=== PATIENT | female | born 1950 | race Caucasian/White ===

== ENCOUNTER 2019-05-19 20:49 | Inpatient (IN) | payer OTHER ==
[~2019-05-19] VITALS: Ht 154.9 cm; Wt 45.9 kg
--- NOTE | 2019-05-19 21:09 | NUR ---
TAKEN TO XRAY FROM TRIAGE, THEN WILL COME TO 14.
[2019-05-19 21:28] LABS: RAPID INFLUENZA A Negative (Negative); RAPID INFLUENZA B Negative (Negative)
[2019-05-19] MEDS ORDERED: SODIUM CHLORIDE 0.9% 1,000ML IVBOLUS ONE ×3 (21:30→23:00)
[2019-05-19] MEDS ORDERED: ACETAMINOPHEN 500 MG TABLET PO ONE (21:30)
[2019-05-19] MEDS ORDERED: SODIUM CHLORIDE FLUSH 10ML SYR IVF ONE (21:30)
[2019-05-19] MEDS ORDERED: methylPREDNISolone SOD SUCC 125 MG/2 ML ONE (21:43)
[2019-05-19 21:48] LABS: BASOPHILS # (AUTO) 0.01 x10^3/uL (0-0.1); BASOPHILS % (AUTO) 0 % (0-1); EOSINOPHILS % (AUTO) 0 % (1-7); LYMPHOCYTES # (AUTO) 0.81 x10^3/uL (1-3.4); LYMPHOCYTES % (AUTO) 8 % (22-44); MD NO; MEAN CORPUSCULAR HEMOGLOBIN 30.3 pg (27.0-34.8); MEAN CORPUSCULAR HGB CONC 33.2 g/dL (32.4-35.8); MEAN CORPUSCULAR VOLUME 91.1 fL (80-100); MEAN PLATELET VOLUME 9.4 fL (7.4-10.4); MONOCYTES # (AUTO) 0.48 x10^3/uL (0.2-0.8); MONOCYTES % (AUTO) 5 % (2-9); NEUTROPHILS # (AUTO) 9.08 x10^3/uL (1.8-6.8); NEUTROPHILS % (AUTO) 88 % (42-75); PLATELET COUNT 165 x10^3/uL (130-400); RED BLOOD COUNT 4.76 x10^6/uL (3.82-5.3); RED CELL DISTRIBUTION WIDTH 13.3 % (9.6-15.2)
[2019-05-19 21:50] LABS: ALANINE AMINOTRANSFERASE 15 U/L (12-78); ALBUMIN 3.6 g/dL (3.4-5.0); ANION GAP 7 mmol/L (5-15); CHLORIDE 105 mmol/L (98-107); CREATININE 0.86 mg/dL (0.55-1.02)
[2019-05-19] MEDS ORDERED: ALBUTEROL SULFATE 2.5 MG/3 ML ONE (21:51)
[2019-05-19 21:52] LABS: ALKALINE PHOSPHATASE 118 U/L (45-117); BILIRUBIN,TOTAL 0.4 mg/dL (0.2-1.0); TOTAL PROTEIN 7.6 g/dL (6.4-8.2)
--- NOTE | 2019-05-19 21:58 | NUR ---
rt at bedside. pt medicated, ivf infusing per emar.
[2019-05-19] MEDS ORDERED: OMNIPAQUE 350 MG/ML, 100ML BOTTLE ONE (22:00)
[2019-05-19] MEDS ORDERED: ALBUTEROL SULFATE 2.5 MG/3 ML NPPB ONE (22:00)
[2019-05-19] MEDS ORDERED: methylPREDNISolone SOD SUCC 125 MG/2 ML IVPush ONE (22:00)
[2019-05-19 22:01] LABS: TROPONIN I < 0.015 ng/mL (0.000-0.045)
[2019-05-19] MEDS ORDERED: CEFTRIAXONE PMX 1GM/50ML 50 ML IV ONE (22:30)
[2019-05-19] MEDS ORDERED: AZITHROMYCIN 500 MG in SODIUM CHLORIDE 0.9% 250 ML IV ONE (22:30)
--- NOTE | 2019-05-19 22:35 | NUR ---
ASSISTED PT TO RR, STEADY GAIT NOTED, PROVIDED PT WITH URINE CUP
--- NOTE | 2019-05-19 22:40 | NUR ---
PT UP TO BATHROOM INDEPENDENTLY. PT REMAINS ANXIOUS. UA COLLECTED AND SENT.
[2019-05-19] MEDS ORDERED: CEFTRIAXONE PMX 1GM/50ML 50 ML ONE (22:43)
[2019-05-19 22:52] LABS: MICROSCOPIC NOT IND
--- NOTE | 2019-05-19 22:52 | NUR ---
PT REQUESTS PO FLUIDS. NOTE FOR MD REGARDING REQUEST. DISCUSSION REGARDING POTENTIAL STAY IN HOSPITAL. AT BEDSIDE.
[2019-05-19 22:58] LABS: CULTURE INDICATED? NO
[2019-05-19] MEDS ORDERED: METH40TA3 PO (23:04)
[2019-05-19] MEDS ORDERED: CLON1TAB23 PO (23:04)
[2019-05-19] MEDS ORDERED: LANS30CA60 PO (23:04)
[2019-05-19] MEDS ORDERED: LISI-167 PO (23:04)
--- NOTE | 2019-05-19 23:08 | NUR ---
Report given to HEENA Maki
[2019-05-19] MEDS ORDERED: ALBUTEROL/IPRATROPIUM 2.5MG/0.5MG, 3 ML NPPB PRN (23:30)
[2019-05-19] MEDS ORDERED: ONDANSETRON 2MG/ML, 2ML IVPush PRN (23:30)
[2019-05-19] MEDS ORDERED: ACETAMINOPHEN 325 MG TABLET PO PRN (23:30)
[2019-05-19 23:45] VITALS: BP 147/72
[2019-05-20] MEDS ORDERED: NICOTINE 21 MG/24 HR PATCH.TD24 TD ONE (00:30)
[2019-05-20 01:42] VITALS: BP 113/67
[2019-05-20] MEDS ORDERED: AZITHROMYCIN 500 MG in SODIUM CHLORIDE 0.9% 250 ML IV SCH (02:00)
[2019-05-20] MEDS: AZITHROMYCIN 500 MG in SODIUM CHLORIDE 0.9% 250 ML IV SCH (02:07)
[2019-05-20] MEDS: SODIUM CHLORIDE 0.9% 1,000 ML IV SCH ×3 (03:51→21:07)
[2019-05-20 05:48] LABS: CHLORIDE 114 mmol/L (98-107)
[2019-05-20 05:57] LABS: ANION GAP 4 mmol/L (5-15); CALCIUM 8.1 mg/dL (8.5-10.1); CREATININE 0.64 mg/dL (0.55-1.02)
[2019-05-20 06:28] LABS: BASOPHILS % (AUTO) 0 % (0-1); EOSINOPHILS % (AUTO) 0 % (1-7); LYMPHOCYTES % (AUTO) 7 % (22-44); MD NO; MEAN CORPUSCULAR HEMOGLOBIN 30.3 pg (27.0-34.8); MEAN CORPUSCULAR HGB CONC 33.1 g/dL (32.4-35.8); MEAN CORPUSCULAR VOLUME 91.5 fL (80-100); MEAN PLATELET VOLUME 9.4 fL (7.4-10.4); MONOCYTES # (AUTO) 0.05 x10^3/uL (0.2-0.8); MONOCYTES % (AUTO) 1 % (2-9); NEUTROPHILS # (AUTO) 7.49 x10^3/uL (1.8-6.8); NEUTROPHILS % (AUTO) 92 % (42-75); PLATELET COUNT 148 x10^3/uL (130-400); RED BLOOD COUNT 4.13 x10^6/uL (3.82-5.3); RED CELL DISTRIBUTION WIDTH 13.9 % (9.6-15.2)
[2019-05-20 07:48] VITALS: BP 146/72
[2019-05-20] MEDS: CEFTRIAXONE PMX 1GM/50ML 50 ML IV SCH (09:02)
[2019-05-20] MEDS: METHADONE INTENSOL 10 MG/ML ORAL CONC PO SCH ×2 (09:02→21:03)
[2019-05-20] MEDS: LISINOPRIL 20 MG TABLET PO SCH (09:02)
[2019-05-20 12:54] VITALS: BP 136/75
[2019-05-20 19:40] VITALS: BP 135/75
[2019-05-21] MEDS ORDERED: NICOTINE 21 MG/24 HR PATCH.TD24 TD SCH
[2019-05-21 00:13] VITALS: BP 146/77
[2019-05-21] MEDS: AZITHROMYCIN 500 MG in SODIUM CHLORIDE 0.9% 250 ML IV SCH (02:53)
[2019-05-21] MEDS: SODIUM CHLORIDE 0.9% 1,000 ML IV SCH (04:59)
[2019-05-21 07:52] VITALS: BP 154/83
[2019-05-21] MEDS: CEFTRIAXONE PMX 1GM/50ML 50 ML IV SCH (08:41)
[2019-05-21] MEDS: LISINOPRIL 20 MG TABLET PO SCH (08:42)
[2019-05-21] MEDS: METHADONE INTENSOL 10 MG/ML ORAL CONC PO SCH (08:44)
[2019-05-21] MEDS ORDERED: CEFD300C37 PO (09:19)
[2019-05-21] MEDS ORDERED: NICO-487 TD (09:19)
[2019-05-21] MEDS ORDERED: AZIT250T PO (09:19)
== END 2019-05-21 11:03 | disposition home or self-care (01) | DRG 871 ==
LOC: ED 21:44 → EDIP 22:58 → 4EST 23:38 → DCLOUNGE 05-21 10:53
PROVIDERS: ADMIT Internal Medicine; ATTEND Family Medicine
DX: A41.9 Sepsis, unspecified organism (principal); J15.9 Unspecified bacterial pneumonia; J96.01 Acute respiratory failure with hypoxia; R65.21 Severe sepsis with septic shock; F11.20 Opioid dependence, uncomplicated; N13.30 Unspecified hydronephrosis; F17.210 Nicotine dependence, cigarettes, uncomplicated; J02.9 Acute pharyngitis, unspecified; F43.10 Post-traumatic stress disorder, unspecified; I10 Essential (primary) hypertension; Z88.2 Allergy status to sulfonamides
CPT/HCPCS: 36415; 84145; 87400; 96374; 99291; J7613; 71045; 71275; 76770; 80048; 80053; 81003; 83605; 83880; 84484; 85025; 87040; 87081; 87880; 93005; 94640; G0378; J0456; J0696; Q9967; J2930; J7030; J7050

== ENCOUNTER 2020-05-22 11:46 | Emergency (ER) | payer OTHER, MEDICARE ==
[~2020-05-22] VITALS: Ht 152.4 cm; Wt 58.5 kg
[~2020-05-22 11:46] MED LIST: AZIT250T PO; CEFD300C37 PO; CLON1TAB23 PO; LANS30CA60 PO; LISI-167 PO; METH40TA3 PO; NICO-587 TD
--- NOTE | 2020-05-22 13:11 | NUR ---
Pt states she was sleep-walking Thursday morning and fell, hitting her back on the tile on their fireplace. Pt resting in position of comfort. MD Adame at bedside. Pt states "I begged my PCP for torodol because I didn't want to be seen as drug seeking, but what really helps is a demerol shot, I get migraines and that seems to break the cycle."
[2020-05-22] MEDS ORDERED: METHOCARBAMOL 750 MG TABLET ONE (13:24)
[2020-05-22] MEDS ORDERED: KETOROLAC 60 MG/2 ML ONE (13:24)
[2020-05-22] MEDS ORDERED: KETOROLAC 30 MG/1 ML IM ONE ×2 (13:30)
[2020-05-22] MEDS ORDERED: METHOCARBAMOL 750 MG TABLET PO ONE (13:30)
--- NOTE | 2020-05-22 14:07 | NUR ---
Pt to and from imaging.
--- NOTE | 2020-05-22 14:46 | NUR ---
MD Adame at bedside to update pt on POC including d/c.
[2020-05-22 15:14] VITALS: BP 117/70
--- NOTE | 2020-05-22 15:17 | NUR ---
PT AND SPOUSE REC'VD DISCHARGE EDUCATION AND INSTRUCTIONS. PT AND SPOUSE HAD NO FURTHER QUESTIONS.
--- NOTE | 2020-05-22 15:25 | NUR ---
PT IN WHEELCHAIR TO DC AREA, THEN TO THE PT'S 'S CAR.
== END 2020-05-22 15:30 | disposition home or self-care (01) ==
LOC: ED 14:04
DX: M51.36 Other intervertebral disc degeneration, lumbar region (principal); I10 Essential (primary) hypertension; W18.30XA Fall on same level, unspecified, initial encounter; Y92.009 Unspecified place in unspecified non-institutional (private) residence as the place of occurrence of the external cause; Y93.89 Activity, other specified; Y99.8 Other external cause status
CPT/HCPCS: 72110; 72220; 96372; 99284; J1885

== ENCOUNTER 2020-08-04 01:37 | Inpatient (IN) | payer MEDICARE, OTHER ==
[~2020-08-04] VITALS: Ht 149.9 cm; Wt 58.5 kg
--- NOTE | 2020-08-04 02:20 | NUR ---
PT BIB [facility] TO ROOM 4, PT SLEEPY AND MILDLY DROWSY. PT TRIAGED, AND IS SLEEPY BUT EASILY AROUSABLE, AND A&OX4 WHEN SHE'S AWAKE. EMS MEDICATED PT FOR PAIN, BY GIVING 8MG OF MORPHINE SULFATE IV, AND 100 MCG OF FENTANYL IV. PT CONTINUES TO ASK FOR PAIN MEDS AT THIS TIME OF ASSESMENT.
--- NOTE | 2020-08-04 02:27 | NUR ---
PT TAKEN TO CT BY THE AIRPLANE MECHANIC, AND GOOD AERATION AND OXYGENATION AND AIRWAY PATENT AND INTACT WITHOUT ASSISTANCE.
[2020-08-04] MEDS ORDERED: SODIUM CHLORIDE FLUSH 10ML SYR IVF ONE (02:30)
[2020-08-04] MEDS ORDERED: SODIUM CHLORIDE 0.9% 1,000 ML IV ONE (02:30)
[2020-08-04 02:48] LABS: BASOPHILS % (AUTO) 1 % (0-1); EOSINOPHILS % (AUTO) 1 % (1-7); LYMPHOCYTES % (AUTO) 35 % (22-44); MEAN CORPUSCULAR HEMOGLOBIN 31.4 pg (27.0-34.8); MEAN CORPUSCULAR HGB CONC 34.5 g/dL (32.4-35.8); MEAN PLATELET VOLUME 7.8 fL (7.4-10.4); MONOCYTES % (AUTO) 5 % (2-9); NEUTROPHILS % (AUTO) 59 % (42-75); PLATELET COUNT 199 x10^3/uL (130-400); RED BLOOD COUNT 4.31 x10^6/uL (3.82-5.3)
[2020-08-04 03:01] LABS: ALANINE AMINOTRANSFERASE 20 U/L (12-78); ALBUMIN 3.7 g/dL (3.4-5.0); ANION GAP 7 mmol/L (5-15); CALCIUM 8.6 mg/dL (8.5-10.1); CHLORIDE 89 mmol/L (98-107); CREATININE 0.87 mg/dL (0.55-1.02)
[2020-08-04 03:03] LABS: ALKALINE PHOSPHATASE 81 U/L (45-117); BILIRUBIN,TOTAL 0.2 mg/dL (0.2-1.0); TOTAL PROTEIN 6.9 g/dL (6.4-8.2)
--- NOTE | 2020-08-04 03:03 | NUR ---
RN WENT INTO ROOM TO PROVIDE ICE CHIPS REQUESTED BY PT. PT IS ASLEEP AND EASILY AROUSABLE VERBALLY, PT WOKE UP AND ASKED IF SHE COULD HAVE MORE PAIN MEDICATIONS. MD ADVISED AND NO PAIN MEDICATIONS AT THIS TIME. PT STILL DROWSY AND SLEEPY FROM THE 8MG OF MORPHINE AND 100MCG OF FENTANYL RECEIVED ENROUTE BY EMS. PTS AT BEDSIDE, PROVIDING AN ICE CHIP AT A TIME, PT STATES HER MOUTH IS EXTREMELY DRY.
--- NOTE | 2020-08-04 03:24 | NUR ---
PT REASSESED AND SLEEPING UNTIL RN WALKS IN ROOM. PT V/S TAKEN. PT REQUESTING PAIN MEDS AGAIN AFTER SHE WOKE UP. PT ADVISED WE CAN TRY ALTERNATIVES SUCH TYLENOL AND IBUPROFEN AT THE MOMENT SINCE SHE JUST GOT A LARGE DOSE OF NARCOTICS. PT IMMEDIATELY STATED THAT TORADOL DOESN'T WORK ON HER AND THAT SHE'S BEEN TAKING TOO MANY IBUPROFEN TO TAKE MORE, AND SAID THAT TYLENOL DOESN'T WORK. PT WAS ADVISED THAT THE MD WOULD BE NOTIFIED AND WE WOULD GO WITH ANY ORDERS THE MD GAVE. PT UNDERSTOOD AND WENT BACK TO SLEEP.
[2020-08-04] MEDS ORDERED: POTASSIUM CHLORIDE 40 MEQ in SODIUM CHLORIDE 0.9% 500 ML IV ONE ×2 (03:30→05:30)
[2020-08-04] MEDS ORDERED: POTASSIUM CHLORIDE 20 MEQ TAB.ER.PRT PO ONE (03:30)
[2020-08-04] MEDS ORDERED: POTASSIUM CHLORIDE 20 MEQ TAB.ER.PRT ONE (03:33)
[2020-08-04 04:19] LABS: MICROSCOPIC NOT IND
--- NOTE | 2020-08-04 04:23 | NUR ---
PT ASSITED TO THE BEDSIDE COMMODE, AND PTS AND RN NEAR BEDSIDE TO PROVIDE HELP. PT PROVIDED URINE SAMPLE AND SENT TO LAB. EKG ORDERED AND DONE. PT ON CR MONITOR COMPLETELY. NO FURTHER COMPLAINTS FROM PT. TO BE ADMITTED. AT BEDSIDE.
[2020-08-04 04:27] LABS: CHLORIDE,URINE RANDOM 41 mmol/L; POTASSIUM,URINE RANDOM 25 mmol/L; SODIUM,URINE RANDOM 33 mmol/L
--- NOTE | 2020-08-04 04:45 | NUR ---
PT COMPLAINING OF MILD DISCOMFORT TO LEFT AC PIV. KCL FLUIDS INFUSING AT 130ML/HR ORDERED PER EMAR. PIV SITE CHECKED AND SOFT AND FLAT AND NO REDNESS. AT BEDSIDE, AND HEATER PLACED FOR PT, SHE FEELS VERY COLD. PT RESTING COMFORTABLY AND IN BETTER CONDITION. AWAITING ROOM ASSIGNMENT.
[2020-08-04] MEDS ORDERED: DOCUSATE 100 MG CAPSULE PO PRN (05:00)
[2020-08-04] MEDS ORDERED: ONDANSETRON ODT 4 MG PO PRN (05:00)
[2020-08-04] MEDS ORDERED: ONDANSETRON 2MG/ML, 2ML IVPush PRN (05:00)
[2020-08-04] MEDS ORDERED: POLYETHYLENE GLYCOL 17 GM PACKET PO PRN (05:00)
[2020-08-04] MEDS ORDERED: SODIUM CHLORIDE 0.9% 1,000 ML IV SCH (05:00)
[2020-08-04] MEDS ORDERED: ACETAMINOPHEN 325 MG TABLET PO PRN (05:00)
[2020-08-04] MEDS ORDERED: BISACODYL 10 MG SUPP PR PRN (05:00)
[2020-08-04] MEDS ORDERED: hydrALAzine 20 MG/ML, 1ML IVPush PRN (05:00)
[2020-08-04] MEDS ORDERED: PROMETHAZINE 25 MG/ML, 1ML IM PRN (05:00)
[2020-08-04] MEDS: ENOXAPARIN 40 MG/0.4 ML SQ SCH (05:00)
[2020-08-04] MEDS ORDERED: ENOXAPARIN 40 MG/0.4 ML ONE (05:17)
[2020-08-04] MEDS ORDERED: POTASSIUM CHLORIDE MC SCH (05:30)
[2020-08-04] MEDS ORDERED: linzess PO (06:18)
[2020-08-04] MEDS: OXYcodone/APAP 5/325MG TABLET PO PRN ×4 (06:25→20:43)
[2020-08-04 06:35] VITALS: BP 119/78
[2020-08-04 08:04] VITALS: BP 120/78
[2020-08-04] MEDS ORDERED: LORazepam 2 MG/ML, 1ML IVPush PRN (09:00)
[2020-08-04 11:28] LABS: ANION GAP 6 mmol/L (5-15); CALCIUM 8.4 mg/dL (8.5-10.1); CHLORIDE 95 mmol/L (98-107); CREATININE 0.79 mg/dL (0.55-1.02)
[2020-08-04 12:36] VITALS: BP 128/75
[2020-08-04] MEDS: NICOTINE 21 MG/24 HR PATCH.TD24 TD SCH (14:34)
[2020-08-04] MEDS ORDERED: HYDR12.517 PO (16:40)
[2020-08-04] MEDS ORDERED: LISI-170 PO (16:40)
[2020-08-04] MEDS ORDERED: QUET25TA5 PO (16:40)
[2020-08-04 18:04] LABS: ANION GAP 6 mmol/L (5-15); CALCIUM 8.5 mg/dL (8.5-10.1); CHLORIDE 98 mmol/L (98-107); CREATININE 0.83 mg/dL (0.55-1.02)
[2020-08-04 20:39] VITALS: BP 136/75
[2020-08-04] MEDS: QUETIAPINE 25MG TABLET PO PRN (20:40)
[2020-08-04] MEDS: ZOLPIDEM 5MG TABLET PO PRN (22:36)
[2020-08-04] MEDS ORDERED: LIDODERM 5% PATCH TD PRN (23:30)
[2020-08-04] MEDS: MORPHINE SULFATE 4 MG/ML, 1ML IVPush PRN (23:42)
[2020-08-05] MEDS: MORPHINE SULFATE 4 MG/ML, 1ML IVPush PRN ×2 (00:15→05:46)
[2020-08-05 00:36] LABS: ANION GAP 4 mmol/L (5-15); CALCIUM 8.8 mg/dL (8.5-10.1); CHLORIDE 99 mmol/L (98-107)
[2020-08-05 01:13] VITALS: BP 143/87
[2020-08-05] MEDS: ENOXAPARIN 40 MG/0.4 ML SQ SCH (05:00)
[2020-08-05 05:32] LABS: BASOPHILS % (AUTO) 1 % (0-1); EOSINOPHILS % (AUTO) 2 % (1-7); LYMPHOCYTES % (AUTO) 39 % (22-44); MEAN CORPUSCULAR HGB CONC 33.9 g/dL (32.4-35.8); MEAN PLATELET VOLUME 8.4 fL (7.4-10.4); MONOCYTES % (AUTO) 7 % (2-9); NEUTROPHILS % (AUTO) 51 % (42-75); PLATELET COUNT 205 x10^3/uL (130-400); RED BLOOD COUNT 4.26 x10^6/uL (3.82-5.3); RED CELL DISTRIBUTION WIDTH 14.3 % (9.6-15.2)
[2020-08-05 05:44] LABS: CHLORIDE 103 mmol/L (98-107)
[2020-08-05 05:53] LABS: ALANINE AMINOTRANSFERASE 18 U/L (12-78); ALBUMIN 3.5 g/dL (3.4-5.0); ALKALINE PHOSPHATASE 73 U/L (45-117); ANION GAP 6 mmol/L (5-15); BILIRUBIN,TOTAL 0.6 mg/dL (0.2-1.0); CHOL/HDL RATIO 2.4; CHOLESTEROL, TOTAL 194 mg/dL (140-239); CREATININE 0.82 mg/dL (0.55-1.02); HDL CHOL % 41 % (28-40); HDL CHOLESTEROL (DIRECT) 80 mg/dL (40-60); LDL CHOLESTEROL,CALCULATED 84 mg/dL (54-169); LDL/HDL RATIO 1.1 (0.5-3.0); TOTAL PROTEIN 6.3 g/dL (6.4-8.2); TRIGLYCERIDES 152 mg/dL (50-200); VLDL CHOLESTEROL 30 mg/dL (0-25)
[2020-08-05 07:28] VITALS: BP 131/87
[2020-08-05] MEDS ORDERED: CALCIUM CARBONATE 500 MG TAB.CHEW ONE (08:54)
[2020-08-05] MEDS ORDERED: CALCIUM CARBONATE 500 MG TAB.CHEW PO PRN (09:00)
[2020-08-05] MEDS: OXYcodone/APAP 5/325MG TABLET PO PRN ×4 (09:05→23:19)
[2020-08-05] MEDS ORDERED: GADOTERATE 7.5 MMOL/15ML SYR ONE (10:29)
[2020-08-05] MEDS ORDERED: AMPICILLIN/SULBACTAM 3 GM in SODIUM CHLORIDE 0.9% 100 ML IV SCH (11:30)
[2020-08-05] MEDS: MAALOX/HYOSCYAMINE/LIDOCAINE 45 ML BTL PO PRN ×2 (11:57→23:19)
[2020-08-05] MEDS: NICOTINE 21 MG/24 HR PATCH.TD24 TD SCH (11:58)
[2020-08-05] MEDS: BACITRACIN OINT 500U/GM, 28GM TP SCH ×3 (11:58→20:29)
[2020-08-05 13:20] VITALS: BP 148/87
[2020-08-05] MEDS: OMEPRAZOLE 20 MG CAPSULE.DR PO SCH (16:40)
[2020-08-05 19:45] VITALS: BP 143/81
[2020-08-05] MEDS: QUETIAPINE 25MG TABLET PO PRN (20:21)
[2020-08-06] MEDS: ZOLPIDEM 5MG TABLET PO PRN (00:51)
[2020-08-06 02:04] VITALS: BP 121/79
[2020-08-06] MEDS: ENOXAPARIN 40 MG/0.4 ML SQ SCH (05:00)
[2020-08-06] MEDS: OMEPRAZOLE 20 MG CAPSULE.DR PO SCH (06:27)
[2020-08-06] MEDS: OXYcodone/APAP 5/325MG TABLET PO PRN ×2 (06:43→10:15)
[2020-08-06 07:28] VITALS: BP 123/74
[2020-08-06] MEDS: BACITRACIN OINT 500U/GM, 28GM TP SCH (09:03)
[2020-08-06] MEDS ORDERED: LACTULOSE 20 GM/30 ML UDC PO ONE (10:30)
[2020-08-06] MEDS ORDERED: LORATADINE 10 MG TABLET PO PRN (10:30)
[2020-08-06] MEDS ORDERED: LACTULOSE 20 GM/30 ML UDC PO PRN (10:30)
[2020-08-06] MEDS ORDERED: OXYC1TAB12 PO (11:12)
[2020-08-06] MEDS ORDERED: LORA-247 PO (11:12)
[2020-08-06] MEDS ORDERED: LIDO700A20 TD (11:12)
[2020-08-06] MEDS ORDERED: LACT20SO13 PO (11:12)
== END 2020-08-06 13:00 | disposition home health service (06) | DRG 542 ==
LOC: ED 02:16 → EDIP 04:11 → 5SO 05:54 → DCLOUNGE 08-06 12:46
PROVIDERS: ADMIT Internal Medicine; ATTEND Internal Medicine
DX: M48.54XA Collapsed vertebra, not elsewhere classified, thoracic region, initial encounter for fracture (principal); G93.41 Metabolic encephalopathy; E87.1 Hypo-osmolality and hyponatremia; N13.30 Unspecified hydronephrosis; E87.6 Hypokalemia; F17.200 Nicotine dependence, unspecified, uncomplicated; I10 Essential (primary) hypertension; F41.9 Anxiety disorder, unspecified; G51.0 Bell's palsy; Z72.89 Other problems related to lifestyle; Z88.2 Allergy status to sulfonamides; Z71.6 Tobacco abuse counseling
CPT/HCPCS: 36415; 72128; 72131; 72157; 80048; 80053; 80061; 81003; 82436; 83036; 83735; 83930; 83935; 84100; 84133; 84300; 84443; 85025; 93005; 96361; 96374; G0378; J1650; J3480; A9575; J2060; J2270; J7030; J7040

== ENCOUNTER 2020-08-09 19:47 | Emergency (ER) | payer MEDICARE, OTHER ==
[~2020-08-09] VITALS: Ht 157.5 cm; Wt 60.0 kg
[~2020-08-09 19:47] MED LIST changes: +HYDR12.517 PO; +LACT20SO13 PO; +LIDO700A20 TD; +LISI-170 PO; +LORA-247 PO; +OXYC1TAB14 PO; +QUET25TA5 PO; +linzess PO
[2020-08-09 20:11] VITALS: BP 153/93
--- NOTE | 2020-08-09 20:28 | NUR ---
CC OF UNABLE TO GO TO THE BATHROOM, WORRIED FOR STOOL IMPACTION AND URINARY RETENTION AND BACK PAIN. STATES " THEY GAVE ME A LAXATIVE WHEN I WAS ADMITTED HERE AND I COULD PEE, THEN THEY STOPPED AND I COULDNT PEE, THEY HAD TO STRAIGHT CATH ME TWICE WHEN I WAS HERE". STATES ITS BEEN 4 DAYS SHE URINATED, ONLY HAD "TRICKLES OF URINE" AND LAST BM WAS WHEN ADMITTED, HAS TAKEN "LOST OF STOOL SOFTENERS" SINCE DC. RECENTLY HERE FOR FX VERTEBRA FROM 6-7 WEEKS AGO WITH WORSENING BACK PAIN. RECENTLY WEANED OFF METHADONE QUICKLY BY [facility]. AT BEDSIDE. PT HAS HOME HEALTH CARE SET UP.
[2020-08-09] MEDS ORDERED: METHYLNALTREXONE 12 MG/0.6 ML SYR SQ ONE ×2 (21:00→21:50)
[2020-08-09 21:17] LABS: BASOPHILS % (AUTO) 1 % (0-1); EOSINOPHILS % (AUTO) 1 % (1-7); LYMPHOCYTES % (AUTO) 20 % (22-44); MEAN CORPUSCULAR HEMOGLOBIN 31.6 pg (27.0-34.8); MEAN CORPUSCULAR HGB CONC 33.6 g/dL (32.4-35.8); MEAN PLATELET VOLUME 7.8 fL (7.4-10.4); MONOCYTES % (AUTO) 8 % (2-9); NEUTROPHILS % (AUTO) 71 % (42-75); PLATELET COUNT 183 x10^3/uL (130-400); RED BLOOD COUNT 3.87 x10^6/uL (3.82-5.3); RED CELL DISTRIBUTION WIDTH 14.9 % (9.6-15.2)
[2020-08-09 21:19] LABS: MD NO
[2020-08-09 21:20] LABS: ALBUMIN 3.9 g/dL (3.4-5.0); ANION GAP 5 mmol/L (5-15); CALCIUM 8.9 mg/dL (8.5-10.1); CHLORIDE 110 mmol/L (98-107); CREATININE 0.89 mg/dL (0.55-1.02)
--- NOTE | 2020-08-09 21:33 | NUR ---
Pt states she can not urinate, . Straight cath via sterile techniqe drained 550 clear yellow urine. Specimen walked to lab. Requested medication per emar.
--- NOTE | 2020-08-09 21:41 | NUR ---
Pt asking for norco "I just need a few norco to get me through, I don't like percocet".
--- NOTE | 2020-08-09 21:55 | NUR ---
Medicated per order.
[2020-08-09 21:57] LABS: MICROSCOPIC INDICATED
--- NOTE | 2020-08-09 22:03 | NUR ---
PT TO IMAGING
--- NOTE | 2020-08-09 23:06 | NUR ---
pt up to bsc with large brown soft BM and urine. pt reports feeling "better now".
== END 2020-08-10 01:28 | disposition home or self-care (01) ==
LOC: ED 08-10 00:10
DX: K59.00 Constipation, unspecified (principal); M54.5 Low back pain; M54.6 Pain in thoracic spine
CPT/HCPCS: 36415; 74021; 80048; 81001; 82040; 85025; 87077; 87086; 87186; 96372; 99284

== ENCOUNTER 2020-08-14 17:11 | Emergency (ER) | payer OTHER ==
[~2020-08-14] VITALS: Ht 149.9 cm; Wt 55.0 kg
--- NOTE | 2020-08-14 17:18 | NUR ---
PT BIBA. PER EMS PT WAS DIAGNOSED WITH UTI ABOUT A WEEK AGO BUT IT IS HAVING WORSENING BILATERAL FLANK PAIN. PT WAS GIVEN 1L NS EN ROUTE TO HOSPITAL. 20G PIV IN R AC PLACED BY [facility]. PT STATES BILATERAL FLANK PAIN RADIAGES TO LOWER ABD. PT RESTING IN [facility], MONITORING IN PLACE, NADN AT THIS TIME, DR. CARVALHO AT BEDSIDE, [facility].
--- NOTE | 2020-08-14 17:26 | NUR ---
TASK RN: TELEPHONE CALL TO [employer] PT PICKED UP RX FOR MACROBID 100MG BID ON 08/12.
[2020-08-14] MEDS ORDERED: CEFTRIAXONE 2 GM in DEXTROSE 5% 50 ML IVPB ONE (17:30)
[2020-08-14] MEDS ORDERED: SODIUM CHLORIDE 0.9% 1,000ML IVBOLUS ONE (17:30)
[2020-08-14] MEDS ORDERED: MORPHINE SULFATE 4 MG/ML, 1ML IVPush ONE (17:30)
[2020-08-14] MEDS ORDERED: ONDANSETRON 2MG/ML, 2ML IVPush ONE (17:30)
[2020-08-14] MEDS ORDERED: MORPHINE SULFATE 4 MG/ML, 1ML ONE (17:37)
[2020-08-14] MEDS ORDERED: ONDANSETRON 2MG/ML, 2ML ONE (17:37)
[2020-08-14 17:43] LABS: BASOPHILS % (AUTO) 1 % (0-1); EOSINOPHILS % (AUTO) 0 % (1-7); LYMPHOCYTES % (AUTO) 22 % (22-44); MEAN CORPUSCULAR HGB CONC 34.2 g/dL (32.4-35.8); MEAN PLATELET VOLUME 7.9 fL (7.4-10.4); MONOCYTES % (AUTO) 11 % (2-9); NEUTROPHILS % (AUTO) 65 % (42-75); PLATELET COUNT 215 x10^3/uL (130-400); RED BLOOD COUNT 3.59 x10^6/uL (3.82-5.3); RED CELL DISTRIBUTION WIDTH 14.8 % (9.6-15.2)
[2020-08-14 17:46] LABS: MD NO
[2020-08-14 17:52] LABS: ANION GAP 6 mmol/L (5-15); CALCIUM 8.3 mg/dL (8.5-10.1); CHLORIDE 113 mmol/L (98-107); CREATININE 0.66 mg/dL (0.55-1.02)
--- NOTE | 2020-08-14 17:55 | NUR ---
Task RN: No BC per MD Gomez.
--- NOTE | 2020-08-14 18:01 | NUR ---
BREAK RN: PT LAYING ON GURNEY AWAKE & MORE COMFORTABLE AT REST, NAD/VSS, NO NEEDS AT THIS TIME, AT BS, CALL LIGHT WITHIN REACH.
[2020-08-14 19:34] VITALS: BP 165/74
== END 2020-08-14 20:37 | disposition home or self-care (01) ==
LOC: ED 18:19
DX: N30.00 Acute cystitis without hematuria (principal); F19.139 Other psychoactive substance abuse with withdrawal, unspecified; B95.2 Enterococcus as the cause of diseases classified elsewhere; R11.10 Vomiting, unspecified; G89.29 Other chronic pain; I10 Essential (primary) hypertension; Z16.11 Resistance to penicillins
CPT/HCPCS: 36415; 80048; 85025; 96365; 96375; 99284; J0696; J2270; J2405; J7030

== ENCOUNTER 2020-11-29 04:41 | Emergency (ER) | payer OTHER ==
[~2020-11-29] VITALS: Ht 172.7 cm; Wt 54.5 kg
--- NOTE | 2020-11-29 05:34 | NUR ---
Note oswald in EDM - 11/29/20 at 0536 by [email or web address] patients Sp02% decreased to mid 70's while sleeping on RA. Patient woken and Sp02% increased to mid 90's. Patient placed on 2L NC supplemental oxygen. Provider Kam JARA notified
[2020-11-29] MEDS ORDERED: LORazepam 1MG TABLET ONE (05:45)
[2020-11-29] MEDS ORDERED: ASPIRIN 81 MG TABLET CHEW ONE (05:46)
[2020-11-29] MEDS ORDERED: LORazepam 1MG TABLET PO ONE (06:00)
[2020-11-29] MEDS ORDERED: ASPIRIN 81 MG TABLET CHEW PO ONE (06:00)
[2020-11-29] MEDS ORDERED: SODIUM CHLORIDE FLUSH 10ML SYR IVF ONE (06:00)
--- NOTE | 2020-11-29 06:15 | NUR ---
patient assisted to the bedside commode.
--- NOTE | 2020-11-29 06:16 | NUR ---
patient helped back to bed and positioned in bed for optimal comfort
[2020-11-29 06:19] LABS: BASOPHILS % (AUTO) 1 % (0-1); EOSINOPHILS % (AUTO) 1 % (1-7); LYMPHOCYTES % (AUTO) 25 % (22-44); MEAN CORPUSCULAR HEMOGLOBIN 31.7 pg (27.0-34.8); MEAN CORPUSCULAR HGB CONC 34.2 g/dL (32.4-35.8); MONOCYTES % (AUTO) 8 % (2-9); NEUTROPHILS % (AUTO) 64 % (42-75); PLATELET COUNT 209 x10^3/uL (130-400); RED BLOOD COUNT 4.46 x10^6/uL (3.82-5.3); RED CELL DISTRIBUTION WIDTH 14.7 % (9.6-15.2)
[2020-11-29 06:30] LABS: ALANINE AMINOTRANSFERASE 14 U/L (12-78); ALBUMIN 4.3 g/dL (3.4-5.0); ANION GAP 7 mmol/L (5-15); CALCIUM 9.1 mg/dL (8.5-10.1); CHLORIDE 107 mmol/L (98-107); CREATININE 0.69 mg/dL (0.55-1.02)
[2020-11-29 06:34] LABS: ALKALINE PHOSPHATASE 86 U/L (45-117); BILIRUBIN,TOTAL 0.4 mg/dL (0.2-1.0); TOTAL PROTEIN 7.6 g/dL (6.4-8.2); TROPONIN I < 0.015 ng/mL (0.000-0.045)
--- NOTE | 2020-11-29 06:50 | NUR ---
PATIENT REFUSED ASPIRIN. EXPLAINED TO PATIENT THE BENEFITS AND CONSEQUENCES OF TAKING AND NOT TAKING ASPIRIN FOR WHY PATIENT CAME TO ER. PATIENT STILL REFUSED ASPIRIN
[2020-11-29 07:33] VITALS: BP 170/95
--- NOTE | 2020-11-29 07:33 | NUR ---
PATIENT SITTING IN CHAIR, STATES "MY BACK HURTS TOO MUCH." CONNECTED TO MONITOR, VSS, SPOUSE AT BEDSIDE, CALL LIGHT WITHIN REACH. PATIENT UP FOR RECHECK.
--- NOTE | 2020-11-29 08:37 | NUR ---
PATIENT GETTING DRESSED AND PULLED MONITORING EQUIPMENT OFF, STATES "I NEED TO GET THE FUCK OUT OF HERE, I'M IN SO MUCH PAIN AND MY PAIN MEDICINE IS AT HOME." SPOKE WITH ROSEY, PATIENT TO BE DISCHARGED. NOTIFIED PATIENT AND SPOUSE.
--- NOTE | 2020-11-29 08:48 | NUR ---
Patient given discharge instructions and prescription and they have confirmed that they understand the instructions. Patient ambulatory with steady gait. NAD, all questions answered appropriately, denies additional needs at this time. No personal belongings left in room after discharge.
== END 2020-11-29 08:49 | disposition home or self-care (01) ==
LOC: ED 08:20
DX: F41.1 Generalized anxiety disorder (principal); M54.5 Low back pain; R00.2 Palpitations; R19.7 Diarrhea, unspecified; F17.200 Nicotine dependence, unspecified, uncomplicated; I10 Essential (primary) hypertension
CPT/HCPCS: 36415; 74022; 80053; 84484; 85025; 93005; 99285

== ENCOUNTER 2021-01-20 08:39 | Emergency (ER) | payer OTHER ==
[~2021-01-20] VITALS: Ht 152.4 cm; Wt 45.0 kg
[~2021-01-20 08:39] MED LIST changes: +OXYC1TAB12 PO; -OXYC1TAB14 PO
--- NOTE | 2021-01-20 09:09 | NUR ---
PT IN HOSPITAL GOWN. PT ON VITALS MONITORS. PT HAS WARM BLANKET. PT AWAITING ERP EVAL.
[2021-01-20] MEDS ORDERED: SODIUM CHLORIDE 0.9% 1,000 ML IV ONE (09:30)
[2021-01-20] MEDS ORDERED: SODIUM CHLORIDE FLUSH 10ML SYR IVF ONE (09:30)
[2021-01-20 09:45] LABS: ALANINE AMINOTRANSFERASE 13 U/L (12-78); ALBUMIN 3.6 g/dL (3.4-5.0); CALCIUM 8.6 mg/dL (8.5-10.1); CHLORIDE 112 mmol/L (98-107); CREATININE 0.67 mg/dL (0.55-1.02)
[2021-01-20 09:47] LABS: ALKALINE PHOSPHATASE 52 U/L (45-117); BILIRUBIN,TOTAL 0.4 mg/dL (0.2-1.0); TOTAL PROTEIN 6.5 g/dL (6.4-8.2)
[2021-01-20 09:48] LABS: BASOPHILS % (AUTO) 1 % (0-1); EOSINOPHILS % (AUTO) 1 % (1-7); LYMPHOCYTES % (AUTO) 31 % (22-44); MEAN CORPUSCULAR HEMOGLOBIN 31.8 pg (27.0-34.8); MEAN CORPUSCULAR HGB CONC 33.7 g/dL (32.4-35.8); MEAN PLATELET VOLUME 7.9 fL (7.4-10.4); MONOCYTES % (AUTO) 6 % (2-9); NEUTROPHILS % (AUTO) 62 % (42-75); PLATELET COUNT 197 x10^3/uL (130-400); RED BLOOD COUNT 4.24 x10^6/uL (3.82-5.3); RED CELL DISTRIBUTION WIDTH 13.5 % (9.6-15.2)
[2021-01-20 09:59] LABS: ANION GAP 4 mmol/L (5-15)
--- NOTE | 2021-01-20 10:00 | NUR ---
STRAIGHT CATH DONE ON PT. URINE TAKEN TO LAB. PT HERE. PT ON VITALS MONITORS. PT ASKING TO BE ADMITTED BECAUSE SHE WANTS A MORE COMFORTABLE BED. PT INFORMED THE DOCTOR HAS NOT MADE ANY DECISION WHETHER TO ADMIT PT OR NOT. WILL CONTINUE TO MONITOR.
[2021-01-20 10:48] LABS: MICROSCOPIC NOT IND
[2021-01-20] MEDS ORDERED: HYDROmorphone 1 MG/ML, 1ML INJ IV ONE (11:30)
[2021-01-20] MEDS ORDERED: HYDROmorphone 2 MG/ML, 1ML ONE (11:43)
[2021-01-20 11:47] VITALS: BP 155/70
--- NOTE | 2021-01-20 11:48 | NUR ---
TASK RN, PT MEDICATED PER JUN, DISCUSSED DC PLAN. VITAL TAKEN.
== END 2021-01-20 12:06 | disposition home or self-care (01) ==
LOC: ED 09:15
DX: M51.36 Other intervertebral disc degeneration, lumbar region (principal); M54.5 Low back pain; N13.1 Hydronephrosis with ureteral stricture, not elsewhere classified; I10 Essential (primary) hypertension; F17.200 Nicotine dependence, unspecified, uncomplicated
CPT/HCPCS: 36415; 71045; 80053; 81003; 85025; 93005; 96361; 96374; 99285; J1170; J7030